=== PATIENT | male | born 1995 | race Asian ===

== ENCOUNTER 2022-04-11 21:15 | Emergency (ER) | payer MEDICAID, SELFPAY ==
[2022-04-11 21:57] VITALS: BP 171/106; PULSE 102; RESP 18; TEMP 36.4; O2SAT 96; BMI 31.0
--- NOTE | 2022-04-11 22:15 | CRLHL7_ITS ---
For Patients: As a result of the Century Cures Act, medical imaging exams and procedure reports are released immediately into your electronic medical record. You may view this report before your referring provider. If you have questions, please contact your health care provider. Indication: Injury with pain and swelling. Technique: Left ankle 3 views. Comparison: None. Findings/Impression: Bones: Acute fracture with a free bone fragment in the tip of the lateral malleolus. No other osseous abnormality. Bone alignment is normal. Joint spaces: Ankle joint is congruent. Soft tissues: Mild lateral soft tissue swelling. Dictated by Ramez Street MD @ 04/11/2022 10:57:35 PM (Electronically Signed)
--- NOTE | 2022-04-11 22:18 | ED_ITS ---
HPI - Extremity Injury (Lower) General Chief Complaint: Extremity Pain/Injury, Lower Stated Complaint: ANKLE INJURY AFTER FALL Time Seen by Provider: 04/11/22 22:07 History of Present Illness HPI Narrative: 26-year-old man here with complaint of left ankle pain following some sort of injury when he tripped on some stairs. No other injuries were sustained. He thought probably just sprained but sounds like significant other was quite concerned about him. He has had good deal swelling in the left malleolar area. He was able to bear weight but not walk initially and increasingly hurts to bear weight now. 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 Has sprained his right ankle before. Related Data Home Medications Medication Instructions Recorded Confirmed albuterol sulfate 90 mcg/actuation See Rx Instructions inhalation 04/11/22 04/11/22 aerosol inhaler (Ventolin HFA) .COMPLEX budesonide-formoterol HFA 160 2 puff inhalation Q12H 04/11/22 04/11/22 mcg-4.5 mcg/actuation aerosol inhaler (Symbicort) cetirizine 10 mg capsule (All Day 10 mg PO DAILY PRN 04/11/22 04/11/22 Allergy (cetirizine)) epinephrine 0.3 mg/0.3 mL 0.3 ml IM Q5-15M PRN 04/11/22 04/11/22 injection, auto-injector fexofenadine 180 mg tablet 180 mg PO DAILY 04/11/22 04/11/22 (Gail Allergy) Allergies Allergy/AdvReac Type Severity Reaction Status Date / Time Iodinated Contrast Media Allergy Intermediate Rash Verified 04/11/22 22:02 citalopram Allergy Mild dizzy and Verified 04/11/22 22:02 nausea ampicillin Allergy Unknown Verified 04/11/22 22:02 Review of Systems Status of ROS: Reports: 6 or more systems reviewed and unremarkable except as noted in History and below [facility] Medical History (Updated 04/20/22 @ 13:47 by Giuliano Pizano MD) Anxiety state, unspecified Elevated blood-pressure reading, without diagnosis of hypertension Elevation of levels of liver transaminase levels Fatty liver Hives Moderate persistent asthma, uncomplicated Overweight Social History Smoking Status: Unknown if ever smoked Non-prescribed substance use: denies use Exam Narrative: Exam Narrative: Pleasant. NAD. Energetic. CN 2 - 12 intact Well muscled. Lateral malleolar soft tissue swelling. Minimal tenderness in the bony lateral malleolus. Did not seem to react much initial exam without tenderness on palpation to medial or lateral malleolus, no pain in navicular area, no base of 5th metatarsal tenderness. Breathing easily. Cardiovascular with regular rate and rhythm. Const: Vital Signs, click to edit/add: Vital Signs - 24 hr 04/11/22 21:57 Temperature 97.5 F L Pulse Rate [Left P ulse Oximeter] 102 H Respiratory Rate 18 Blood Pressure [Ri ght Upper Arm] 171/106 H Pulse Oximetry 96 Oxygen Delivery Me thod Room Air Documenting provider has reviewed patient's vital signs: yes Course Course Hospital Course: Initially appeared that he would pass [place] ankle rules screening. I did place an Aircast. Given the size of his calves it is a little bit too low but he seems to be really unable to bear weight with that either. Will be going for x- ray. Reevaluation(s) Reevaluation #1: xray by my read shows maintained mortise but fracture fragment off tip of lateral malleolus Vital Signs Vital signs: Initial Vital Signs Temperature 97.5 F L 04/11/22 21:57 Temperature Source Temporal Artery Scan 04/11/22 21:57 Pulse Rate 102 H 04/11/22 21:57 Respiratory Rate 18 04/11/22 21:57 Blood Pressure 171/106 H 04/11/22 21:57 Blood Pressure Mean 127 04/11/22 21:57 Blood Pressure Position Semi-Fowlers 04/11/22 21:57 Pulse Oximetry 96 04/11/22 21:57 Oxygen Delivery Method 04/11/22 21:57 Vital Signs Temperature 97.5 F L 04/11/22 21:57 Pulse Rate 102 H 04/11/22 21:57 Respiratory Rate 18 04/11/22 21:57 Blood Pressure 171/106 H 04/11/22 21:57 Pulse Oximetry 96 04/11/22 21:57 Oxygen Delivery Method 04/11/22 21:57 Temperature 97.5 F L 04/11/22 21:57 Pulse Rate 102 H 04/11/22 21:57 Respiratory Rate 18 04/11/22 21:57 Blood Pressure 163/112 H 04/11/22 23:45 Pulse Oximetry 96 04/11/22 21:57 Oxygen Delivery Method 04/11/22 21:57 MDM - Extremity Injury (Lower) MDM Narrative Medical decision making narrative: fracture fragment a little larger than simple/typical avulsion. will be placing in btk cam boot; crutches if needed. Discharge Plan Discharge Clinical Impression: Avulsion fracture of distal end of fibula, Ankle sprain and strain, Elevated blood pressure reading Patient Disposition: Home, Self-Care Instructions: Crutch Instructions (ED), Walking Boot (ED) Additional Instructions: This fibular fracture is a little larger than most avulsion fractures that I see. I do think this Cam boot would be helpful. As long as does not hurt too much you can ambulate on it with the cam boot. If seems to be causing excessive pain, use crutches. I would try to rest this over the next few days. Can remove Cam boot to ice a few times daily over the next few days. The Bird wrap should be helpful here. I like those icing bags as discussed. Would also follow up with Orthopedics in about a week. Phone #[phone] Prescriptions: No Action albuterol sulfate [Ventolin HFA] 90 mcg/actuation HFA aerosol inhaler See Rx Instructions INHALATION .COMPLEX Label Comments: INHALE 1-2 PUFFS BY MOUTH EVERY 4 HOURS WHILE AWAKE. Rx Instructions: 1-2 PUFFS EVERY 4 HOURS WHILE AWAKE inhaled; budesonide-formoterol [Symbicort] 160-4.5 mcg/actuation HFA aerosol inhaler 2 puff INHALATION Q12H Label Comments: INHALE 2 PUFFS BY MOUTH TWICE DAILY fexofenadine [Gail Allergy] 180 mg tablet 180 mg PO DAILY All Day Allergy (cetirizine) 10 mg capsule 10 mg PO DAILY PRN epinephrine 0.3 mg/0.3 mL auto-injector 0.3 ml IM Q5-15M PRN Rx Instructions: do not exceed 3 doses per episode Follow Up/Referrals: Teofilo Goodson MD [Primary Care Provider] - Stand Alone Forms: [facility] Info Instructions
--- NOTE | 2022-04-11 22:23 | ED.NURSE ---
Gel cast and phoenix wrap applied to left ankle by provider.
--- OUTSIDE RECORDS SUMMARY | 2022-04-11 22:53 | XMS_ITS | Clinical Summary ---
:1995 Author Organization [facility] [place] [address] Care Team Providers Name Role Phone Teofilo Goodson MD Primary Care Provider [phone] Allergies Active Allergy Reactions Severity Noted Date Comments Ampicillin 06/06/2007 Citalopram Other - Describe In 06/03/2018 Dizzy an d nausea Comment Field Iodinated Contrast Rash 09/29/2021 Itchy inga h upper Media torso and face Medications Medication Sig Dispensed Refills Start Date End Date Status fexofenadine Takes 1 tablet once 0 02/25/2015 Active (MIGUEL) 180 mg a day tablet EPINEPHrine (AUVI-Q) Inject 0.3 mg 1 Each 1 07/11/2018 Active 0.3 mg/0.3 mL intramuscular one injectionIndications time if needed for : Anaphylaxis, Allergic Reaction. initial encounter Cetirizine 10 mg cap 0 05/24/2019 Active Ventolin HFA 90 Inhale 1-2 Puffs by 1 Each 1 08/04/2021 Active mcg/actuation mouth every 4 hours inhalerIndications: while awake. Moderate persistent asthma without complication budesonide-formotero Inhale 2 Puffs by 10.2 g 12 08/06/2021 Active L (Symbicort) mouth 2 times daily. 160-4.5 mcg/actuation (160-4.5 mcg each actuation) inhalerIndications: Moderate persistent asthma without complication polyethylene glycoL Mix 1 scoop (17 g) 507 g 0 09/26/2021 Active (MIRALAX) 17 in liquid then take gram/dose by mouth once daily powderIndications: if needed for Abdominal pain, RUQ Constipation. (right upper quadrant) sucralfate Four Times Daily 0 09/29/2021 A ctive (CARAFATE) 1 gram tablet Active Problems Problem Noted Date Transaminitis 09/09/2021 Overview: CT w fatty liver Moderate persistent asthma without complication 2017 Syncope and collapse 05/31/2018 Elevated blood pressure reading without diagnosis of h ypertension 05/31/2018 Anxiety state, unspecified Fatty liver Overview: on CT 09/30/2021. Overweight Hives Overview: has seen Business Analysis Consultant. Citerizine and Fexof enadine. Resolved Problems Problem Noted Date Resolved Date Allergic state 05/31/2018 09/29/2021 Asthma with acute exacerbation 04/08/2015 8 Immunizations Name Administration Dates Next Due Hib Conjugate, Unspecified 05/09/2015 Human Papilloma Virus Vaccine 10/06/2012, 03/08/2012, 2011 Influenza A (H1N1), Inactivated 05/24/2009 Influenza Virus, Unspecified 04/26/2017, 04/01/2015, 014 Influenza, IIV3 (Age >=3 years) 04/15/2014, 04/23/2006 Influenza, IIV4 06/06/2019, 05/27/2016 Influenza, IIV4 (=>6mos) MDV 06/24/2021, 05/21/2020, 018, 04/01/2015 Influenza,CCIIV4 PRESERV FREE 05/19/2018 Influenza,LAIV4 Live Intranasal 04/07/2011 (Flumist) Meningococcal Vaccine 05/09/2015 Meningococcal Vaccine (Menactra) 05/09/2015 Pneumococcal Poly,23-Valent 08/06/2021 (Pneumovax) Tdap 08/17/2017 Social History Tobacco Use Types Packs/Day Years Used Date Never Smoker Smokeless Tobacco: Never Used Tobacco Cessation: Counseling Given: Yes Alcohol Use Standard Drinks/Week Comments Yes 0 (1 standard drink = 0.6 oz pure alcoho l) Alcohol Habits Answer Date Recorded How often do you have a drink containing alcohol? Monthly or less 05/23/2020 How many drinks containing alcohol do you have on a 1 or 2 05/23/2020 typical day when you are drinking? How often do you have six or more drinks on one Never 05/23/2020 occasion? Comment: Not asked Sex Assigned at Date Recorded Not on file Obstetrics History Last Filed Vital Signs Vital Sign Reading Time Taken Comments Blood Pressure 117/75 12/01/2021 1:38 PM CDT Pulse 100 12/01/2021 1:38 PM CDT Temperature 36.9 ??C (98.4 ??F) 12/01/2021 1:38 PM CDT Respiratory Rate 18 10/11/2018 3:38 PM CDT Oxygen Saturation 97% 12/01/2021 1:38 PM CDT Inhaled Oxygen Concentration - - Weight 84.7 kg (186 lb 12.8 oz) 09/29/2021 3:43 PM CDT Height 157 cm (5' 1.81) 09/29/2021 3:43 PM CDT Body Mass Index 34.38 09/29/2021 3:43 PM CDT Plan of Treatment Health Maintenance Due Date Last Done Comments COVID-19 vaccine series (4 - 08/21/2021 06/26/2021, 021, Booster for Moderna series) 10/28/2020 Influenza for age 9-49 03/12/2022 06/24/2021, 05/21/2020, 06/06/2019, Additional history exists Depression screening for age 12+ 08/06/2022 08/06/2021, 01/2019, 08/17/2017 Pneumococcal series for age 19-64 08/06/2022 08/06/2021 (2 - PCV) BMI (ht and wt on same day) for 09/29/2022 09/29/2021, 10/11, age 18+ 10/11/2018, Additional history exists Tetanus booster 08/17/2027 08/17/2017 HPV series for age 9-26 Completed 10/06/2012, 03/08/2012, 01/06/2012 Tdap Completed 08/17/2017 Hepatitis C screening for age Completed 11/07/2018 18-79 Results Not on filefrom Last 3 Months Insurance Payer Benefit Plan / Subscriber ID Effective Dates Phone Addre ss Type Group [place] [id number] 2021-Present [address] [place] [address] [phone] (Home) [address] [place] [id number] Care Teams Customer Program Specialist Relationship Specialty Start Date End Date Teofilo Goodson MD PCP - General Family Practice 03/04/[address] [place] [address]
[2022-04-11 23:45] VITALS: BP 163/112
== END 2022-04-11 23:20 | disposition home or self-care (01) ==
PROVIDERS: Emergency Provider Family Medicine; PCP Family Medicine
DX: S82.832A Other fracture of upper and lower end of left fibula, initial encounter for closed fracture (principal); W10.9XXA Fall (on) (from) unspecified stairs and steps, initial encounter; Y93.9 Activity, unspecified; Y92.9 Unspecified place or not applicable; Y99.9 Unspecified external cause status
CPT/HCPCS: 73610; 99283

== ENCOUNTER 2023-12-12 15:16 | Emergency (ER) | payer MEDICAID, SELFPAY ==
[2023-12-12 15:40] VITALS: BP 153/98; PULSE 98; RESP 20; TEMP 37.2; O2SAT 97; BMI 33.7
--- NOTE | 2023-12-12 16:11 | ED_ITS ---
HPI - General Adult General Date Seen: 12/12/23 Chief complaint: Skin/Abscess/Foreign Body Stated complaint: Infected tattoo R leg Time Seen by Provider: 12/12/23 15:49 History of Present Illness HPI narrative: Very pleasant generally healthy 28-year-old man presenting to the ER today with concern for spreading infection on his right distal/medial lower extremity proximal to the ankle. He is generally healthy. No history of diabetes or immunosuppression. No long-term medications. 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 He was practicing a couple of weeks ago and gave himself a tattoo on his right medial lower leg. The tattoo had some trouble healing was initially scabbed and a little bit draining some serous fluid. Several days ago at it began to develop some redness around the tattoo site. He went to the clinic 3 days ago on . He was put on doxycycline by his doctor for possible cellulitis around the tattoo site. Also given mupirocin. He had ongoing redness with some blistering around the tattoo site and went to the urgent care yesterday. He was changed from doxycycline to a combination of Bactrim and cephalexin yesterday in urgent care. He was told that if he had any spreading redness he should come to the ER. He notes that overnight the redness has spread by about half a cm compared to where it was yesterday. Other than that he is doing well. No fevers or chills. No red streaks moving up his leg. No body aches. No myalgias. No weakness. No systemic illness. He also notes that there was no more purulent drainage. Just a little bit of blistering on the skin. He he talked to his mother, who is a physician who suggested that he may just be able to keep an eye on the reddened area but since he was instructed to come back, he came back in. Related Data Home Medications ?Medication ?Instructions ?Recorded ?Confirmed albuterol sulfate 90 mcg/actuation See Rx Instructions inhalation 04/11/22 12/12/23 aerosol inhaler (Ventolin HFA) .COMPLEX budesonide-formoterol HFA 160 2 puff inhalation Q12H 04/11/22 12/12/23 mcg-4.5 mcg/actuation aerosol inhaler (Symbicort) cetirizine 10 mg capsule (All Day 10 mg PO DAILY PRN 04/11/22 12/12/23 Allergy (cetirizine)) epinephrine 0.3 mg/0.3 mL 0.3 ml IM Q5-15M PRN 04/11/22 12/11/23 injection, auto-injector fexofenadine 180 mg tablet 180 mg PO DAILY 04/11/22 12/12/23 (Gail Allergy) amlodipine 5 mg tablet 5 mg PO DAILY 12/12/23 12/12/23 losartan 25 mg tablet 25 mg PO DAILY 12/12/23 12/12/23 Previous Rx's ?Medication ?Instructions ?Recorded cephalexin 500 mg capsule 500 mg PO TID 7 days #21 caps 12/11/23 sulfamethoxazole 800 1 tab PO BID 7 days #14 tabs 12/11/23 mg-trimethoprim 160 mg tablet (Bactrim DS) Allergies Allergy/AdvReac Type Severity Reaction Status Date / Time Iodinated Contrast Media Allergy Intermediate Rash Verified 12/11/23 14:39 citalopram Allergy Mild dizzy and Verified 12/11/23 14:39 nausea ampicillin Allergy Unknown Verified 12/11/23 14:39 [facility] Medical History Anxiety state, unspecified ?F41.1 - Generalized anxiety disorder (ICD-10) Elevated blood-pressure reading, without diagnosis of hypertension ?R03.0 - Elevated blood-pressure reading, without diagnosis of hypertension (ICD-10) Moderate persistent asthma, uncomplicated ?J45.40 - Moderate persistent asthma, uncomplicated (ICD-10) Hives ?L50.9 - Urticaria, unspecified (ICD-10) Overweight ?E66.3 - Overweight (ICD-10) Fatty liver ?K76.0 - Fatty (change of) liver, not elsewhere classified (ICD-10) Elevation of levels of liver transaminase levels ?R74.01 - Elevation of levels of liver transaminase levels (ICD-10) Social History Smoking Status: Never smoker How often do you have a drink containing alcohol: never AUDIT-C Alcohol total score: 0 Non-prescribed substance use: denies use Exam Narrative: Exam Narrative: Constitutional: Appears well-developed and well-nourished. Active. Non-toxic appearing. HENT: Head: Atraumatic. No signs of injury. Nose: No nasal discharge. Mouth/Throat: Mucous membranes are moist. Pharynx is normal. Tonsils symmetric. Uvula midline. Airway patent. Eyes: Conjunctivae normal and EOM are normal. Pupils are equal, round, and reactive to light. Right eye exhibits no discharge. Left eye exhibits no discharge. No icterus. Neck: Normal range of motion. Neck supple. No adenopathy. No stridor. Cardiovascular: Normal rate and regular rhythm. No murmur heard. No murmurs, rubs, or gallops. Brisk capillary refill Pulmonary/Chest: Effort normal. No stridor. No respiratory distress. No wheezes.No rhonchi. No rales. No retractions. Abdominal: Soft. Bowel sounds are normal. No distension. No mass. There is no tenderness. There is no rebound and no guarding. Musculoskeletal: Normal range of motion. No edema. No tenderness. No deformity. Neurological: Alert. Normal strength. No cranial nerve deficit or sensory deficit. Coordination normal. GCS eye subscore is 4. GCS verbal subscore is 5. GCS motor subscore is 6. Skin: Does have multiple healed tattoos on his right lower extremity. There is a tattoo on the medial distal lower extremity proximal to the ankle that is surrounded by redness. There is a well-circumscribed nearly circular area of e rythema surrounding the tattoo. It is measuring 5.5 x 4.5 cm. There is little bit of superficial blistering of the skin. No purulent drainage. No desquamation. There is some induration of the skin. No underlying fluctuance. No crepitus. No ascending lymphangitis. No tenderness. Skin is otherwise warm and well perfused. No rash noted. Const: Vital Signs, click to edit/add: Vital Signs - 24 hr 12/12/23 15:40 Temperature 99 F Pulse Rate [Pulse Oximeter] 98 Respiratory Rate 20 Blood Pressure [Ri ght Upper Arm] 153/98 H Pulse Oximetry 97 Oxygen Delivery Me thod Room Air Course Vital Signs Vital signs: Initial Vital Signs Temperature 99 F 12/12/23 15:40 Temperature Source Temporal Artery Scan 12/12/23 15:40 Pulse Rate 98 12/12/23 15:40 Respiratory Rate 20 12/12/23 15:40 Blood Pressure 153/98 H 12/12/23 15:40 Blood Pressure Mean 116 H 12/12/23 15:40 Pulse Oximetry 97 12/12/23 15:40 Oxygen Delivery Method Room Air 12/12/23 15:40 Vital Signs Temperature 99 F 12/12/23 15:40 Pulse Rate 98 12/12/23 15:40 Respiratory Rate 20 12/12/23 15:40 Blood Pressure 153/98 H 12/12/23 15:40 Pulse Oximetry 97 12/12/23 15:40 Oxygen Delivery Method Room Air 12/12/23 15:40 Temperature 99 F 12/12/23 15:40 Pulse Rate 98 12/12/23 15:40 Respiratory Rate 20 12/12/23 15:40 Blood Pressure 153/98 H 12/12/23 15:40 Pulse Oximetry 97 12/12/23 15:40 Oxygen Delivery Method Room Air 12/12/23 15:40 Medical Decision Making [facility] Narrative Medical decision making narrative: This patient presents for evaluation of skin redness that has been spreading on the skin of his right lower leg around the site where he gave himself attached to a couple of weeks ago he is already on topical antibiotics (mupirocin) and oral antibiotics (currently Bactrim and cephalexin). He actually saw his doctor and was put on doxycycline 3 days ago and then went to the urgent care yesterday and was switched from doxy to Bactrim and Keflex. He noted that there has been a small increase in the size of the redness by half a cm yesterday compared to today so he came back to the ER. Also there is little bit of blistering of the skin. I wonder if this redness could potentially be a contact dermatitis, possibly to some of the creams he was putting on the tattoo to make it heal or possibly a allergic reaction to mupirocin. No history of exposure to poison john or other plants. There is no sign of any systemic allergic reaction or anaphylaxis. I do not think this represents erythema migrans or Lyme disease. No evidence for other rashes on the skin to suggest Voss Hernandez's. Differential of course also includes infection such as cellulitis. There do not appear at this time to be any complication of cellulitis including abscess, necrotizing fascitis, lymphangitis, lymphadenitis, osteomyelitis, sepsis, or shock. The patient is not immunosuppressed or diabetic. In truth he just started on his new antibiotic regimen about 24 hours ago. It typically takes 24-72 hours for antibiotics to start giving much good and sometimes you can see a small amount of spreading redness early in the course of an antibiotic regimen. He is not having any other symptoms to suggest worsening infection or developing sepsis. He is agreeable to continue outpatient antibiotics and monitor carefully. We did take pictures of his reddened area with a metrics scale in the picture. He can use these for surveillance. Supportive outpatient management is indicated with antibiotics. Will also have him discontinue the mupirocin in case the blisters are a contact dermatitis. The patient is instructed to follow-up with primary care physician to ensure no progression and rapid resolution and given precautions to return if high fever, spread greater than 2cm outside of the current area, worsening pain, vomiting or any other worsening. Questions answered and return precautions reviewed. Discharge Plan Discharge Clinical Impression: Cellulitis Patient Disposition: Home, Self-Care Condition: Stable Instructions: Cellulitis (ED) Additional Instructions: As we discussed, please discontinue using the mupirocin ointment. Continue on the oral antibiotics (Bactrim and cephalexin). Monitor the red area carefully. It often can take 48-72 hours for an infection to start to improve on antibiotics. If the reddened area continues to spread more than additional cm or 2 or if you develop any other worsening symptoms such as fever or chills, body aches, weakness, or any other problems come back to the ER right away. Prescriptions: No Action cephalexin 500 mg capsule 500 mg PO TID 7 Days Qty: 21 0RF sulfamethoxazole-trimethoprim [Bactrim DS] 800-160 mg tablet 1 tab PO BID 7 Days Qty: 14 0RF albuterol sulfate [Ventolin HFA] 90 mcg/actuation HFA aerosol inhaler See Rx Instructions INHALATION .COMPLEX Patient Comments: INHALE 1-2 PUFFS BY MOUTH EVERY 4 HOURS WHILE AWAKE. Rx Instructions: 1-2 PUFFS EVERY 4 HOURS WHILE AWAKE inhaled; budesonide-formoterol [Symbicort] 160-4.5 mcg/actuation HFA aerosol inhaler 2 puff INHALATION Q12H Patient Comments: INHALE 2 PUFFS BY MOUTH TWICE DAILY fexofenadine [Gail Allergy] 180 mg tablet 180 mg PO DAILY All Day Allergy (cetirizine) 10 mg capsule 10 mg PO DAILY PRN epinephrine 0.3 mg/0.3 mL auto-injector 0.3 ml IM Q5-15M PRN Rx Instructions: do not exceed 3 doses per episode amlodipine 5 mg tablet 5 mg PO DAILY losartan 25 mg tablet 25 mg PO DAILY Follow Up/Referrals: Teofilo Goodson MD [Primary Care Provider] - Stand Alone Forms: [employer] Info Instructions
--- OUTSIDE RECORDS SUMMARY | 2023-12-12 16:15 | XMS_ITS | Clinical Summary ---
Author Organization [facility] [facility] Address [place], [place] [address] Care Team Providers Care Felt Strip Finisher Name Role Phone Teofilo Goodson MD Primary Care Provider Allergies Active Allergy Reactions Criticality Noted Date Comments Ampicillin 06/06/2007 Citalopram Other - Describe In Comment Field 06/03/2018 Dizzy and nausea Iodinated Contrast Media Rash 09/29/2021 Itchy rash upper torso and face Medications Medication Sig Dispensed Refills Start Date End Date Status fexofenadine (MIGUEL) 180 mg tablet Takes 1 tablet once a day 0 02/25/2015 Active Cetirizine 10 mg cap 05/24/2019 Active Ventolin HFA 90 mcg/actuation inhalerIndications :Moderate persistent asthma without complication Inhale 1-2 Puffs by mouth every 4 hours while awake. 1 Each 11/20/2022 Active EPINEPHrine (Auvi-Q) 0.3 mg/0.3 mL auto-injectorIndic ations:Anaphylaxis , initial encounter Inject 0.3 mg intramuscular one time if needed for Allergic Reaction. 2 Each 11/20/2022 Active budesonide-formote roL (Symbicort) 160-4.5 mcg/actuation (160-4.5 mcg each actuation) inhalerIndications :Moderate persistent asthma without complication Inhale 2 Puffs by mouth two times daily. 10.2 g 6 06/14/2023 Active amLODIPine (NORVASC) 10 mg tabletIndications: Benign essential HTN Take 1 Tablet (10 mg) by mouth once daily. 90 Tablet 3 09/03/2023 Active losartan (COZAAR) 50 mg tabletIndications: Benign essential HTN Take 1 Tablet (50 mg) by mouth once daily. 90 Tablet 3 10/25/2023 Active doxycycline monohydrate 100 mg capsuleIndications :Skin infection Take 1 Capsule (100 mg) by mouth two times daily for 7 days. 14 Capsule 12/09/2023 Active Active Problems Problem Noted Date Diagnosed Date Allergies 10/25/2023 Benign essential HTN 08/03/2023 Transaminitis 09/09/2021 Overview: CT w fatty liver Moderate persistent asthma without complication 05/31/2018 Syncope and collapse 05/31/2018 Anxiety state, unspecified Fatty liver Overview: on CT 09/30/2021. Overweight Hives Overview: has seen Insurance Counsel. Citerizine and Fexofenadine. Resolved Problems Problem Noted Date Diagnosed Date Resolved Date Elevated blood pressure read ing without diagnosis of hypertension 05/31/2018 08/03/2023 Allergic state 05/31/2018 09/29/2021 Asthma with acute exacerbation 04/08/2015 05/31/2018 Encounters Date Type Department Care Team Description 12/09/2023 8:55 AM CDT Office Visit [facility] [address] [place] [address] Khushboo Wood DO Infection (X3 weeks ago - x1 week noted it was really red, some bubbles but not draining, some itching and pain - bleeding some, and yellow fluid on the bandage after ) 12/09/2023 Travel 12/01/2023 10:00 AM CDT Office Visit [facility] [address] [place] [address] Jeannette Cannon [facility] Individual Therapy 12/01/2023 Travel 11/03/2023 10:00 AM CDT Office Visit [facility] [address] [place] [address] Jeannette Cannon, [facility] Individual Therapy; Trmt Plan 11/03/2023 Travel 10/25/2023 10:30 AM CDT Office Visit [facility] [address] [place] [address] Teofilo Goodson MD Follow Up (Blood pressure) 10/25/2023 Travel 10/04/2023 9:40 AM CDT Office Visit [facility] [address] [place] [address] Teofilo Goodson MD Follow Up (Blood pressure) 10/04/2023 Travel from Last 3 Months Immunizations Name Administration Dates Next Due COVID-19 Vaccine Spikevax (M oderna 50mcg/0.5mL) 12YO+ [id number] Formula PF 06/14/2023 COVID-19 vaccine (Moderna 100mcg/0.5mL) PF, MDV 06/26/2021,11/25/2020,10/28/2020 Hib Conjugate, Unspecified 05/09/2015 Human Papilloma Virus Vaccine 10/06/2012, 012,01/06/2012 Influenza A (H1N1), Inactivated 05/24/2009 Influenza Virus, Unspecified 04/26/2017,04/01/20 15,04/15/2014 Influenza, IIV3 (Age >=3 years) 04/15/2014,04/23 Influenza, IIV4 06/14/2023,06/06/2019,05/27/2016 Influenza, IIV4 (=>6mos) MDV 06/24/2021, 05/21/2020,05/30/2018,04/01 Influenza,CCIIV4 PRESERV FREE 05/19/2018 Influenza,LAIV4 Live Intrana iliana (Flumist) 04/07/2011 Meningococcal Vaccine 05/09/2015 Meningococcal Vaccine (Menactra) 05/09/2015 Pneumococcal Conj 20-valent (Prevnar 20) 11/20/2022 Pneumococcal Poly,23-Valent (Pneumovax) 08/06/2021 Tdap 08/17/2017 Social History Tobacco Use Types Packs/Day Years Used Date Smoking Tobacco: Never Smokeless Tobacco: Never Tobacco Cessation:Counseling Given: Yes Alcohol Use Standard Drinks/Week Comments Yes 0 (1 standard drink = 0.6 oz pur e alcohol) rare PHQ-2 Answer Date Recorded PHQ-2 TOTAL SCORE 3 12/01/2023 Social Connections Answer Date Recorded Frequency of Communication with Friends and Fami ly 0 04/11/2023 Financial Resource Strain Answer Date R ecorded Difficulty of Paying Living Expenses 3 04/11/2023 Difficulty of Paying Living Expenses Not on file 04/11/2023 Food Insecurity Answer Date Recorded Worried About Running Out of Food in the Last Ye ar 1 04/11/2023 Transportation Needs Answer Date Record ed Lack of Transportation (Medical) 1 04/11/2023 Housing Stability Answer Date Recorded Unable to Pay for Housing in the Last Year 1 04/11/2023 Sex and Gender Information Value Date Recorded Sex Assigned at Not on file Gender Identity Not on file Sexual Orientation Not on file Obstetrics History Last Filed Vital Signs Vital Sign Reading Time Taken Comments Blood Pressure 145/90 12/09/2023 8:56 AM CDT Pulse 116 12/09/2023 8:56 AM CDT Temperature 36.8 ??C (98.2 ??F) 07/26/2023 10:[address] Respiratory Rate 18 10/11/2018 3:38 PM CDT Oxygen Saturation 98% 12/09/2023 8:56 AM CDT Inhaled Oxygen Concentration - - Weight 87.8 kg (193 lb 8 oz) 12/09/2023 8:56 AM CDT Height 157.5 cm (5' 2) 07/26/2023 10:19 AM PLANT AND MACHINERY VALUER Body Mass Index 35.39 07/26/2023 10:19 AM PLANT AND MACHINERY VALUER Plan of Treatment Upcoming Encounters Date Type Department Care Team (Late st Contact Info) Description 01/12/2024 2:15 PM CDT Office Visit [facility] [address] [place] [phone] Jeannette Cannon, [facility] [address] [place] [address] Health Maintenance Due Date Last Done Comments Influenza for age 9-49 03/12/2024 3, 06/24/2021, 05/21/2020, Additional history exists BMI (ht and wt on same day) for age 18+ 07/26/2024 07/26/2023, 06/14/2023, 11/20/2022, Additional history exists Depression screening for age 12+ 11/30/2024 12/01/2023, 11/03/2023, 09/06/2023, Additional history exists Tetanus booster 08/17/2027 08/17/2017 Tdap Completed 08/17/2017 HIV for age 15-65 Completed 11/07/2018 Hepatitis C screening for ag e 18-79 Completed 11/07/2018 Pneumococcal series for age 6-64 Completed 11/21/19 23, 08/06/2021 COVID-19 vaccine series Completed 06/14/20, 06/26/2021, 11/25/2020, Additional history exists Procedures Procedure Name Priority Date/Time Associated Diagnosis Comments AEROBIC BACTERIAL CULTURE, STAIN Routine 12/09/2023 9:05 AM CDT Skin infection BASIC METABOLIC PANEL Routine 10/25/2023 10:51 AM CDT Benign essential HTN ANTI HIV 1/2 Routine 11/07/2018 12:38 PM CDT Screening for STD (sexually transmitted disease) ANTI HCV Routine 11/07/2018 12:38 PM CDT Screening for STD (sexually transmitted disease) from Last 3 Months or Most Recently Relevant to Health Maintenance Results * AEROBIC BACTERIAL CULTURE, STAIN (12/09/2023 9:05 AM CDT) CULTURE No Growth. 12/12/2023 8:28 AM CDT [facility] GRAM STAIN 1+ Epithelial cells 12/12/2023 8:28 AM CDT [facility] GRAM STAIN No RBCs 12/12/2023 8:28 AM CDT [facility] GRAM STAIN No PMNs 12/12/2023 8:28 AM CDT [facility] GRAM STAIN No organisms seen 12/12/2023 8:28 AM CDT [facility] Other (Other) Non-Blood / Unknown 12/09/2023 9:05 AM CDT 12/09/2023 9:36 AM CDT Khushboo Wood DO MICROBIOLOGY [facility] [address] [place] [address], * (ABNORMAL) BASIC METABOLIC PANEL (10/25/2023 10:51 AM CDT) SODIUM 140 136 - 145 mmol/L 10/25/2023 6:42 PM CDT [facility] POTASSIUM 4.6 3.5 - 5.1 mmol/L 10/25/2023 6:42 PM CDT [facility] CHLORIDE 105 98 - 107 mmol/L 10/25/2023 6:42 PM CDT [facility] CO2,TOTAL 23 22 - 29 mmol/L 10/25/2023 6:42 PM CDT [facility] ANION GAP 12 5 - 18 10/25/2023 6:42 PM CDT [facility] GLUCOSE 107(H) 70 - 99 mg/dL 10/25/2023 6:42 PM CDT [facility] CALCIUM 9.5 8.6 - 10.0 mg/dL 10/25/2023 6:42 PM CDT [facility] BUN 16 6 - 20 mg/dL 10/25/2023 6:42 PM CDT [facility] CREATININE 1.00 0.70 - 1.20 mg/dL 10/25/2023 6:42 PM CDT [facility] BUN/CREAT RATIO 16 10 - 20 6:42 PM CDT [facility] eGFR >90 >90 mL/min/1.7 3m2 10/25/2023 6:42 PM CDT [facility] Comment:As of 2021, eG FR is calculated by the CKD-EPI creatinine equation without race adjustment. ??eGFR can be influenced by muscle mass, exercise, and diet. ??The reported eGFR is an estimation only and is only applicable if the renal function is stable. Blood BLOOD SPECIMEN / Unknown Venipuncture / Unknown 10/25/2023 10:51 AM CDT 10/25/2023 10:51 AM CDT Teofilo Goodson MD CHEMISTRY Performing Organization Address [facility] Co de Phone Number [facility] [employer] [facility] [address] * ANTI HCV (11/07/2018 12:38 PM CDT) Pathologist [facility] HEPATITIS C ANTIBODY Non-React leonid Non-React leonid 11/07/2018 5:32 PM CDT [facility] Comment:Antibodies to HCV no t detected; does not exclude the possibility of exposure to HCV. Blood BLOOD SPECIMEN / Unknown Venipuncture / Unknown 11/07/2018 12:38 PM CDT 11/07/2018 12:43 PM CDT Marlee West MD SEND OUTS Performing Organization Address [facility] Co de Phone Number [facility] [employer] [facility] [address] * ANTI HIV 1/2 (11/07/2018 12:38 PM CDT) Pathologist [facility] HIV-1/HIV-2 ANTIBODY Non-Reacti ve Non-Reacti ve 11/07/2018 5:35 PM CDT [facility] Comment:HIV-1 p24 and HIV-1/ HIV-2 Ab not detected. Blood BLOOD SPECIMEN / Unknown Venipuncture / Unknown 11/07/2018 12:38 PM CDT 11/07/2018 12:43 PM CDT Marlee West MD SEND OUTS Performing Organization Address [facility]/ZIP Co de Phone Number [facility] [address] [place] [address], from Last 3 Months or Most Recently Relevant to Health Maintenance Care Teams Felt Strip Finisher Relationship Specialty Start Date End Date Teofilo Goodson MD [address] [place] [address] PCP - General Family Practice 03/04/16
== END 2023-12-12 16:24 | disposition home or self-care (01) ==
LOC: ED 16:13
PROVIDERS: Emergency Provider Emergency Medicine; PCP Family Medicine
DX: L03.115 Cellulitis of right lower limb (principal)
CPT/HCPCS: 99283

== ENCOUNTER 2025-01-18 18:13 | Emergency (ER) | payer MEDICAID, SELFPAY ==
--- OUTSIDE RECORDS SUMMARY | 2025-01-18 18:14 | XMS_ITS | Clinical Summary ---
Author Organization [email or web address] [facility] Address [address] [place] [address] Care Team Providers Care Garbage Pick Up Worker Name Role Phone Teofilo Goodson MD Primary Care Provider Allergies Active Allergy Reactions Criticality Noted Date Comments Ampicillin 06/06/2007 Citalopram Other - Describe In Comment Field 06/03/2018 Dizzy and nausea Iodinated Contrast Media Rash 09/29/2021 Itchy rash upper torso and face Medications fexofenadine (MIGUEL) 180 mg tablet Takes 1 tablet once a day 0 02/26/20 15 Active Cetirizine 10 mg cap 05/24/20 19 Active Ventolin HFA 90 mcg/actuation inhalerIndicatio ns:Moderate persistent asthma without complication (HC) Inhale 1-2 Puffs by mouth every 4 hours while awake. 1 Each 1 11/21/19 23 Active triamcinolone (ARISTOCORT; KENALOG) 0.1 % creamIndications :Dermatitis Apply topically to affected area(s) three times daily. 80 g 12/24/19 24 Active amLODIPine (NORVASC) 10 mg tabletIndication s:Benign essential HTN Take 1 Tablet (10 mg) by mouth once daily. 90 Tablet 3 08/04/19 25 Active olmesartan (BENICAR) 20 mg tabletIndication s:Benign essential HTN Take 1 Tablet (20 mg) by mouth once daily. 90 Tablet 3 08/04/19 25 Active EPINEPHrine (Auvi-Q) 0.3 mg/0.3 mL auto-injectorInd ications:Anaphyl axis, initial encounter Inject 0.3 mg intramuscular one time if needed for Allergic Reaction. 2 Each 1 01/17/20 25 Active budesonide-formo teroL (SYMBICORT,BREYN A) 160-4.5 mcg/actuation (160-4.5 mcg each actuation) inhalerIndicatio ns:Moderate persistent asthma without complication (HC) Inhale 2 puffs twice daily and 1-2 puffs every 4 hours as needed for asthma exacerbations. Max of 8 puffs per day. 1 Each 11 01/17/20 25 Active EPINEPHrine (Auvi-Q) 0.3 mg/0.3 mL auto-injectorInd ications:Anaphyl axis, initial encounter Inject 0.3 mg intramuscular one time if needed for Allergic Reaction. 2 Each 1 11/21/19 23 025 Discontin ued(Reord er (E-cancel not sent)) budesonide-formo teroL (Symbicort) 160-4.5 mcg/actuation (160-4.5 mcg each actuation) inhalerIndicatio ns:Moderate persistent asthma without complication (HC) Inhale 2 Puffs by mouth two times daily. 10.2 g 6 06/14/20 23 025 Discontin ued(Reord er (E-cancel not sent)) Active Problems Problem Noted Date Diagnosed Date Allergies 10/25/2023 Benign essential HTN 08/03/2023 Transaminitis 09/09/2021 Overview (09/29/2021): CT w fatty liver Moderate persistent asthma without complication 05/31/2018 Syncope and collapse 05/31/2018 Anxiety state, unspecified Fatty liver Overview (09/29/2021): on CT 09/30/2021. Overweight Hives Overview (09/29/2021): has seen Dock Clerk. Citerizine and Fexofenadine. Resolved Problems Problem Noted Date Diagnosed Date Resolved Date Avulsion fracture of distal end of fibula 12/24/2023 08/04/2024 TMJ contusion 12/24/2023 08/04/2024 Elevated blood pressure read ing without diagnosis of hypertension 05/31/2018 08/03/2023 Allergic state 05/31/2018 09/29/2021 Asthma with acute exacerbation 04/08/2015 05/31/2018 Encounters Date Type Department Care Team Description 01/18/[address] [address] Teofilo Goodson MD Prior Authorization (budesonide-formoteroL (SYMBICORT,BREYNA) 160-4.5 mcg/actuation (160-4.5 mcg each actuation) inhaler) 01/18/[address] [address] Teofilo Goodson MD Prior Authorization (EPINEPHrine (Auvi-Q) 0.3 mg/0.3 mL auto-injector) 01/17/2025 10:00 AM CDT Office Visit [address] [address] Jeannette Cannon LICSW Individual Therapy 01/16/2025 1:15 PM CDT Office Visit [address] [address] Teofilo Goodson MD Medication Management (epi pen refil) 01/16/2025 Travel 12/20/2024 3:00 PM CDT Office Visit [address] [phone] Jeannette Cannon LICSW Individual Therapy; Trmt Plan 12/20/2024 Travel 11/27/2024 9:15 AM CDT Office Visit [address] [address] Jeannette Cannon LICSW Individual Therapy 11/27/2024 Travel from Last 3 Months Immunizations Immunization Administration Dates Next Due COVID-19 VACCINE SPIKEVAX (M ODERNA 50MCG/0.5ML) 12YO+ PFS 06/14/2023 COVID-19 vaccine (Moderna 100mcg/0.5mL) PF, MDV 06/26/2021,11/25/2020,10/28/2020 Hib Conjugate, Unspecified 05/09/2015 Human Papilloma Virus Vaccine 10/06/2012, 012,01/06/2012 INFLUENZA, IIV3 PF (AGE >= 6 MO) 08/04/2024 Influenza A (H1N1), Inactivated 05/24/2009 Influenza Virus, [...] PHQ-2 Answer Date Recorded PHQ-2 TOTAL SCORE 4 12/20/2024 Social Connections Answer Date Recorded Do you often feel lonely or isolated from those around you? 0 08/04/2024 Financial Resource Strain Answer Date R ecorded Difficulty of Paying Living Expenses 3 08/04/2024 Difficulty of Paying Living Expenses Not on file 08/04/2024 Food Insecurity Answer Date Recorded Do you worry your food will run out before you are able to buy more? 1 08/04/2024 Transportation Needs Answer Date Record ed Does lack of transportation keep you from medica l appointments? 1 08/04/2024 Does lack of transportation keep you from work, meetings or getting things that you need? 1 08/04/2024 Housing Stability Answer Date Recorded What is your housing situation today? 1 08/04/2024 Utilities Answer Date Recorded Do you have trouble paying f or utilities (for example, heat, electricity, water, phone)? 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 Not on file Not on file Not on file Obstetrics History Last Filed Vital Signs Vital Sign Reading Time Taken Comments Blood Pressure 128/78 01/16/2025 1:30 PM CDT Pulse 75 01/16/2025 1:30 PM CDT Temperature 36.8 C (98.2 F) 07/26/2023 10:19 AM ENVIRONMENTAL HEALTH TECHNICIAN Respiratory Rate 18 10/11/2018 3:38 PM CDT Oxygen Saturation 97% 01/16/2025 1:10 PM CDT Inhaled Oxygen Concentration - - Weight 80 kg (176 lb 6.4 oz) 01/16/2025 1:10 PM CDT Height 157.5 cm (5' 2) 08/04/2024 2:04 PM ENVIRONMENTAL HEALTH TECHNICIAN Body Mass Index 32.26 08/04/2024 2:04 PM ENVIRONMENTAL HEALTH TECHNICIAN Plan of Treatment Upcoming Encounters Date Type Department Care Team (Late st Contact Info) Description 07/13/2025 8:00 AM ENVIRONMENTAL HEALTH TECHNICIAN Orders Only [facility] [address] [facility] [address] [place], [place] 07/19/2025 8:55 AM ENVIRONMENTAL HEALTH TECHNICIAN Office Visit [facility] [address] [place] [address] Teofilo Goodson MD [address] [place] [address] Health Maintenance Due Date Last Done Comments Hepatitis B series for 19+ ( 1 of 3 - 19+ 3-dose series) 2015 COVID-19 vaccine series ( season) 2024 06/14/2023, 06/26/2021, 11/25/2020, Additional history exists Influenza Vaccine (#1) 2025 , 06/14/2023, 06/24/2021, Additional history exists BMI (ht and wt on same day) for age 18+ 08/04/2025 08/04/2024, 07/26/2023, 06/14/2023, Additional history exists Depression screening for age 12+ 12/20/2025 12/20/2024, 08/28/2024, 08/05/2024, Additional history exists Tetanus booster 08/17/2027 08/17/2017 HIV for age 15-65 Completed 11/07/2018 Hepatitis C screening for ag e 18-79 Completed 11/07/2018 Pneumococcal series for age 6-49 Completed 11/21/19 23, 08/06/2021 Procedures Procedure Name Priority Date/Time Associated Diagnosis Comments ANTI HIV 1/2 Routine 11/07/2018 12:38 PM CDT Screening for STD (sexually transmitted disease) ANTI HCV Routine 11/07/2018 12:38 PM CDT Screening for STD (sexually transmitted disease) from Last 3 Months or Most Recently Relevant to Health Maintenance Results * ANTI HCV (11/07/2018 12:38 PM CDT) [facility] HEPATITIS C ANTIBODY Non-React leonid Non-React leonid 11/07/2018 5:32 PM CDT [facility] Comment:Antibodies to HCV no t detected; does not exclude the possibility of exposure to HCV. Blood BLOOD SPECIMEN / Unknown Venipuncture / Unknown 11/07/2018 12:38 PM CDT 11/07/2018 12:43 PM CDT us Marlee West MD SEND OUTS Fin al [facility] [address] [place] [address], [place] * ANTI HIV 1/2 (11/07/2018 12:38 PM CDT) HIV-1/HIV-2 ANTIBODY Non-Reacti ve Non-Reacti ve 11/07/2018 5:35 PM CDT [facility] Comment:HIV-1 p24 and HIV-1/ HIV-2 Ab not detected. Blood BLOOD SPECIMEN / Unknown Venipuncture / Unknown 11/07/2018 12:38 PM CDT 11/07/2018 12:43 PM CDT us Marlee West MD SEND OUTS Fin al Result [facility] [address] [place] [address], from Last 3 Months or Most Recently Relevant to Health Maintenance Insurance [id number] [place] [address] [facility] Care Teams Garbage Pick Up Worker Relationship Specialty Start Date End Date Teofilo Goodson MD [address] [place] [address] PCP - General Family Practice 03/04/16
--- OUTSIDE RECORDS SUMMARY | 2025-01-18 18:14 | XMS_ITS | Patient Health Record ---
Author Organization [facility] Address [address] [address] Care Team Providers Care Production Superintendent Name Role Phone VIOLETA ZAMORA, MALI Unavailable [phone] Therese ZAMORA, Josué Unavailable Unavailable Reason For Referral No Information Plan Of Treatment No Information Insurance Providers Payer Name Payer Address Payer Phone Subscriber Number Group Number Insured Name Patient Relationship to Insured Coverage Start Date Coverage End Date [facility] [address] [address] [place] [address] [phone] [id number] Mali Gonzales Child - Insured has Financial Responsibility 7
[2025-01-18 18:24] VITALS: BP 152/110; PULSE 88; RESP 18; TEMP 36.7; O2SAT 98; BMI 31.0
--- NOTE | 2025-01-18 18:30 | ED.HA ---
HPI - Headache General Time Seen by Provider: 18:30 Date Seen: 01/18/25 Chief Complaint: Headache/Migraine Stated Complaint: Migraine Time Seen by Provider: 01/18/25 18:25 History of Present Illness HPI Narrative: And is a very pleasant 29-year-old male with history of migraines and hypertension who comes to the emergency room for evaluation of a headache. Then had the onset of a right sided headache yesterday that has persisted and gradually worsened today. It is associated with occasional blurred vision as the day has gone on. He has not had no fever chills vomiting or nausea. Usually his migraines involve his entire forehead. He denies any recent trauma. He has not had any fever chills sore throat respiratory symptoms. He did try some Tylenol this morning. He states he was not as concerned as his who has sent him to the ER. He arrives with his [id number]. Rates initial headache it office Related Data Home Medications ?Medication ?Instructions ?Recorded ?Confirmed albuterol sulfate 90 mcg/actuation See Rx Instructions inhalation 04/11/22 12/12/23 aerosol inhaler (Ventolin HFA) .COMPLEX budesonide-formoterol HFA 160 2 puff inhalation Q12H 04/11/22 12/12/23 mcg-4.5 mcg/actuation aerosol inhaler (Symbicort) cetirizine 10 mg capsule (All Day 10 mg PO DAILY PRN 04/11/22 12/12/23 Allergy (cetirizine)) epinephrine 0.3 mg/0.3 mL 0.3 ml IM Q5-15M PRN 04/11/22 12/11/23 injection, auto-injector fexofenadine 180 mg tablet 180 mg PO DAILY 04/11/22 12/12/23 (Gail Allergy) amlodipine 5 mg tablet 5 mg PO DAILY 12/12/23 12/12/23 losartan 25 mg tablet 25 mg PO DAILY 12/12/23 12/12/23 Allergies Allergy/AdvReac Type Severity Reaction Status Date / Time Iodinated Contrast Media Allergy Intermediate Rash Verified 12/11/23 14:39 citalopram Allergy Mild dizzy and Verified 12/11/23 14:39 nausea ampicillin Allergy Unknown Verified 12/11/23 14:39 Review of Systems Status of ROS: Reports: 10 or more systems reviewed and unremarkable except as noted in History and below Const: Denies: fever or chills Eyes: Reports: blurry vision ENMT: Denies: throat pain, neck pain or nasal congestion Resp: Denies: cough GI: Denies: nausea or vomiting Musculo: Denies: neck pain Neuro: Reports: headache; Denies: numbness in extremities or weakness in extremities PFSH PFS Medical History Anxiety state, unspecified ?F41.1 - Generalized anxiety disorder (ICD-10) Elevated blood-pressure reading, without diagnosis of hypertension ?R03.0 - Elevated blood-pressure reading, without diagnosis of hypertension (ICD-10) Moderate persistent asthma, uncomplicated ?J45.40 - Moderate persistent asthma, uncomplicated (ICD-10) Hives ?L50.9 - Urticaria, unspecified (ICD-10) Overweight ?E66.3 - Overweight (ICD-10) Fatty liver ?K76.0 - Fatty (change of) liver, not elsewhere classified (ICD-10) Elevation of levels of liver transaminase levels ?R74.01 - Elevation of levels of liver transaminase levels (ICD-10) Social History Smoking Status: Never smoker How often do you have a drink containing alcohol: never AUDIT-C Alcohol total score: 0 Non-prescribed substance use: denies use Exam Narrative: Exam Narrative: Ramón is alert and oriented. No acute distress. EOM is full. Phobia. Pupils equal round reactive. No pain with palpation over the temporal artery. Oral cavity with moist mucous membranes. Heart with regular rate and rhythm lungs are clear. Moving all extremities. Const: Vital Signs, click to edit/add: Vital Signs - 24 hr 01/18/25 18:24 01/18/25 20:16 Temperature 98.0 F Pulse Rate [Pulse Oximeter] 88 91 Respiratory Rate 18 16 Blood Pressure [Ri ght Upper Arm] 152/110 H 139/99 H Pulse Oximetry 98 Oxygen Delivery Me thod Room Air Documenting provider has reviewed patient's vital signs: yes Course Course ED Course: Differential diagnosis includes but is not limited to temporal arteritis, headache, migraine, some anxiety. Given age and lack of tenderness over temporal artery I think this is most likely an atypical migraine. We will treat with Reglan 10 mg IV piggyback with Benadryl 50 mg IV as well as 1 L of normal saline. If not improved will consider CT. Reevaluation(s) Reevaluation #1: Patient did not think he had much improvement with Reglan and Benadryl and thus to give a dose of Toradol 15 mg IV. Reevaluation #2: Patient notes he is much improved and would like to go home. He continues to be interactive with no red flag symptoms. Vital Signs Vital signs: Initial Vital Signs Temperature 98.0 F 01/18/25 18:24 Temperature Source Temporal Artery Scan 01/18/25 18:24 Pulse Rate 88 01/18/25 18:24 Respiratory Rate 18 01/18/25 18:24 Blood Pressure 152/110 H 01/18/25 18:24 Blood Pressure Mean 124 H 01/18/25 18:24 Blood Pressure Position Sitting 01/18/25 18:24 Pulse Oximetry 98 01/18/25 18:24 Oxygen Delivery Method Room Air 01/18/25 18:24 Vital Signs Temperature 98.0 F 01/18/25 18:24 Pulse Rate 88 01/18/25 18:24 Respiratory Rate 18 01/18/25 18:24 Blood Pressure 152/110 H 01/18/25 18:24 Pulse Oximetry 98 01/18/25 18:24 Oxygen Delivery Method Room Air 01/18/25 18:24 Temperature 98.0 F 01/18/25 18:24 Pulse Rate 91 01/18/25 20:16 Respiratory Rate 16 01/18/25 20:16 Blood Pressure 139/99 H 01/18/25 20:16 Pulse Oximetry 98 01/18/25 18:24 Oxygen Delivery Method Room Air 01/18/25 18:24 Medications Administered Medications: Discontinued Medications Generic Name Dose Route Start Last Admin Trade Name Freq PRN Reason Stop Dose Admin Diphenhydramine HCl 50 mg 01/18/25 18:37 01/18/25 19:04 Diphenhydramine 50 Mg/Ml Inj IVP 01/18/25 18:38 50 mg ONCE ONE Administration Sodium Chloride 1,000 mls @ 1,000 mls/hr 01/18/25 18:37 01/18/25 19:40 0.9 % Sodium Chloride 1000 Ml IV 01/18/25 19:36 1,000 mls/hr .Q1H SARA Administration Metoclopramide HCl 10 mg/ 102 mls @ 306 mls/hr 01/18/25 18:37 01/18/25 18:52 Sodium Chloride IVPB 01/18/25 18:38 306 mls/hr ONCE ONE Administration Ketorolac Tromethamine 15 mg 01/18/25 19:30 01/18/25 19:39 Ketorolac 15 Mg/Ml Inj IVP 01/18/25 19:31 15 mg ONCE ONE Administration MDM - Headache MDM Narrative Medical decision making narrative: 1. Headache-much improved. Patient received Reglan, Benadryl without much relief. He then received Toradol and has had good relief. He is wishing to go home at this time. 2. Hypertension-recheck showed blood pressure improved to 139/99. Patient will still need to follow-up with his primary MD for recheck. 3. Disposition-home at this time. Push fluids, rest and return as needed for worsening symptoms. Medical Records Attestation: I reviewed the patient's medical records. Discharge Plan Discharge Clinical Impression: Headache Patient Disposition: Home, Self-Care Condition: Improved Additional Instructions: Rest, increase fluids. Return as needed Prescriptions: No Action albuterol sulfate [Ventolin HFA] 90 mcg/actuation HFA aerosol inhaler See Rx Instructions INHALATION .COMPLEX Patient Comments: INHALE 1-2 PUFFS BY MOUTH EVERY 4 HOURS WHILE AWAKE. Rx Instructions: 1-2 PUFFS EVERY 4 HOURS WHILE AWAKE inhaled; budesonide-formoterol [Symbicort] 160-4.5 mcg/actuation HFA aerosol inhaler 2 puff INHALATION Q12H Patient Comments: INHALE 2 PUFFS BY MOUTH TWICE DAILY fexofenadine [Gail Allergy] 180 mg tablet 180 mg PO DAILY All Day Allergy (cetirizine) 10 mg capsule 10 mg PO DAILY PRN epinephrine 0.3 mg/0.3 mL auto-injector 0.3 ml IM Q5-15M PRN Rx Instructions: do not exceed 3 doses per episode amlodipine 5 mg tablet 5 mg PO DAILY losartan 25 mg tablet 25 mg PO DAILY Follow Up/Referrals: Teofilo Goodson MD [Primary Care Provider, Family Practice] Stand Alone Forms: [email or web address] Info Instructions
[2025-01-18] MEDS: METOCLOPRAMIDE HCL 10 MG in 0.9 % SODIUM CHLORIDE 100 ml 100 ML 306 MG IVPB (18:52)
[2025-01-18 20:16] VITALS: BP 139/99; PULSE 91; RESP 16
== END 2025-01-18 20:15 | disposition home or self-care (01) ==
LOC: ED 19:30
PROVIDERS: Emergency Provider Family Medicine; PCP Family Medicine
DX: R51.9 Headache, unspecified (principal); H53.8 Other visual disturbances; I10 Essential (primary) hypertension
CPT/HCPCS: 96374; 96375; 99284; J1200; J1885; J2765; J7030